=== PATIENT | female | born 1955 | race Caucasian/White ===

== ENCOUNTER 2021-07-21 20:16 | Inpatient (IN) | payer OTHER ==
[~2021-07-21] VITALS: Ht 160 cm; Wt 101.6 kg
[2021-07-21 20:00] VITALS: BP 120/51
[2021-07-21 20:30] VITALS: BP 120/51
[2021-07-21] MEDS ORDERED: REMEDY ESSENTIAL ZINC PASTE 113 GM TOP PRN (20:30)
[2021-07-21] MEDS ORDERED: LOSA25TA27 PO (21:09)
[2021-07-21] MEDS ORDERED: FURO40TA5 PO (21:09)
[2021-07-21] MEDS ORDERED: METF-495 PO (21:09)
[2021-07-21] MEDS ORDERED: RIVA10TA PO (21:09)
[2021-07-21] MEDS ORDERED: METO25TA6 PO (21:09)
[2021-07-21] MEDS ORDERED: ROSU20TA32 PO (21:09)
[2021-07-21] MEDS ORDERED: ASPI-612 PO (21:09)
[2021-07-21] MEDS: OXYCODONE HCL 5 MG TABLET PO PRN (22:43)
--- NOTE | 2021-07-22 03:45 | NUR ---
Received a 66 yr old female from [facility] with an admitting diagnosis of osteomylitis Left knee. Patient S/P left knee arthroplasty POD# 4 Left knee dressing intact with mickey. On pain management. Dr Cha aware of patient's admission. Medicated with Oxycodone 10 mg given as needed. Relief noted. OOB to bedside commode. Voiding well. Dr Chopra texted for patient's admission orders. Awaiting for call back. VS taken and recorded. T 100.9 HR 86 resp 18 BP 120/61 pulse ox 95%RA. Dr Cha also aware of patient's temperature. Will monitor patient. Siderails up for safety.
[2021-07-22 04:00] VITALS: BP 129/55
[2021-07-22 07:42] VITALS: BP 115/51
--- NOTE | 2021-07-22 08:24 | NUR ---
Received PT AAOx4 respiration even and unlabored, sitting on the bed side chair. Patient S/P left knee arthroplasty POD# 4 Left knee dressing intact with mickey on. On pain management. Oxycodone 10 mg given as needed. PT able to get OOB to bedside commode. Voiding well. Up with PT using the FWW. left massage Dr Chopra for patient's admission orders needs to be reconcile. Awaiting for call back. VS taken and recorded. T =98.6 pulse ox 96% at RA. Will monitor patient for comfort and safety Siderails up call light and all need it items within reach.
[2021-07-22] MEDS: OXYCODONE HCL 5 MG TABLET PO PRN ×2 (08:37→21:07)
[2021-07-22 15:33] VITALS: BP 128/52
[2021-07-22] MEDS ORDERED: METF-442 PO (16:32)
--- NOTE | 2021-07-22 20:00 | NUR ---
NSG: Received patient lying in bed. alert and oriented x4. Patient S/P left knee arthroplasty POD# 4 Left knee dressing intact with mickey on. PT able to get OOB to bedside commode. patient uses fww to go to the bath room. Voiding well. Up with PT using the FWW. Will monitor patient for comfort and safety Side rails up call light and all need it items within reach.
[2021-07-22 20:53] VITALS: BP 140/68
[2021-07-22] MEDS: ATORVASTATIN 20 MG TABLET PO SCH (21:59)
[2021-07-22] MEDS: METFORMIN HCL 500 MG TABLET PO SCH (21:59)
[2021-07-23 04:58] VITALS: BP 126/60
--- NOTE | 2021-07-23 05:37 | NUR ---
NSG: Remain calm and cooperative. pain meds given x1 and effective.resting in bed comfortably. call light w/in reach.
[2021-07-23 07:50] VITALS: BP 126/60
[2021-07-23] MEDS: METFORMIN HCL 500 MG TABLET PO SCH ×2 (08:27→17:18)
[2021-07-23] MEDS: LOSARTAN POTASSIUM 25 MG TABLET PO SCH (08:27)
[2021-07-23] MEDS: ASPIRIN 325 MG TABLET PO SCH (08:27)
[2021-07-23] MEDS: FUROSEMIDE 40 MG TABLET PO SCH (08:29)
[2021-07-23] MEDS: RIVAROXABAN 10 MG TABLET PO SCH (08:29)
[2021-07-23] MEDS: METOPROLOL TARTRATE 25 MG TABLET PO SCH ×2 (08:30→17:18)
--- NOTE | 2021-07-23 12:06 | NUR ---
Dr. Cha came to check patient and noticed redness and tenderness at distal part of knee incision, suspecting patient has cellulitis. Dr. Cha asked me to called her Ortho Dr. Vasques in case antibiotics were needed. Dr. Vasques was called at 12:00 at his office [phone], Regina got the message and is going to inform Dr. Vasques.
[2021-07-23] MEDS ORDERED: CLINDAMYCIN PHOSPHATE IV 600 MG in IV DEXTROSE 5% 100 ML IV SCH ×5 (13:45→14:00)
--- NOTE | 2021-07-23 14:40 | NUR ---
Received patient awake in her room. A/O X 3 to person, place, environment, situation. Pt. is calm, cooperative, friendly. Compliant with medications. Knee surgery, dressing changed. Dr. Cha prescribed Clindamycin IV 600 mg in IV Dextrose 5% 100 ml for cellulitis. Requires minimal assistance with ADL. Fall and safety precautions implemented.
[2021-07-23 15:15] VITALS: BP 112/55
[2021-07-23] MEDS: CLINDAMYCIN PHOSPHATE IV 600 MG in IV DEXTROSE 5% 100 ML IV SCH (17:37)
--- NOTE | 2021-07-23 17:44 | NUR ---
Dr. Schultz started Midline IV for this patient around 17:30 to receive antibiotics for cellulitis.
--- NOTE | 2021-07-23 20:00 | NUR ---
RECD PT IN BED, ALERT,ORIENTEDX 4, NO ACUTE DISTRESS NOTED, RESTED FAIRLY WELL, STOOL SAMPLE FOR C DIFF SENT TO LAB, UP TO BR WITH VERY MIN ASSIST.
[2021-07-23 22:10] VITALS: BP 122/61
[2021-07-23] MEDS: ATORVASTATIN 20 MG TABLET PO SCH (22:24)
[2021-07-23] MEDS: OXYCODONE HCL 5 MG TABLET PO PRN (23:33)
--- NOTE | 2021-07-23 23:33 | NUR ---
MEDICATED WITH OXYIR 10 MG FOR LEFT KNEE AND GEN PAIN, REPOSITIONED AND KEPT COMFORTABLE. ROOM TEMP REGULATED ACCORDINGLY.NEEDS ATTENDED TO, MEDICATION TEACHING (OXYIR)PROVIDED. ABLE TO DEMONSTRATE UNDERSTANDING.
[2021-07-24] MEDS: CLINDAMYCIN PHOSPHATE IV 600 MG in IV DEXTROSE 5% 100 ML IV SCH ×3 (03:15→17:20)
[2021-07-24 05:47] VITALS: BP 116/63
[2021-07-24 07:43] VITALS: BP 113/63
--- NOTE | 2021-07-24 08:00 | NUR ---
ENDORSED TO AM NURSE, DID NOT WANT LAB DRAW AT THIS TIME. WILL WAIT FOR A LATER TIME,ENDORSED IN FAIR CONDITION, NO DISTRESS NOTED.
--- NOTE | 2021-07-24 09:21 | NUR ---
RECEIVED PATIENT IN BED AWAKE, ALERT AND ORIENTED WITH NO ACUTE DISTRESS NOTED. WILL CONTINUE TO MONITOR.
[2021-07-24] MEDS: METOPROLOL TARTRATE 25 MG TABLET PO SCH ×2 (09:44→17:19)
[2021-07-24] MEDS: METFORMIN HCL 500 MG TABLET PO SCH ×2 (09:44→17:19)
[2021-07-24] MEDS: LOSARTAN POTASSIUM 25 MG TABLET PO SCH (09:45)
[2021-07-24] MEDS: ASPIRIN 325 MG TABLET PO SCH (09:45)
[2021-07-24] MEDS: FUROSEMIDE 40 MG TABLET PO SCH (09:45)
[2021-07-24] MEDS: RIVAROXABAN 10 MG TABLET PO SCH (09:46)
[2021-07-24] MEDS: OXYCODONE HCL 5 MG TABLET PO PRN ×2 (10:05→17:33)
[2021-07-24 15:15] VITALS: BP 104/55
--- NOTE | 2021-07-24 15:45 | NUR ---
INDIVIDUALIZED PLAN OF CARE
[2021-07-24] MEDS: ATORVASTATIN 20 MG TABLET PO SCH (20:14)
--- NOTE | 2021-07-24 20:51 | NUR ---
STOOL COLLECTED FOR O/P, AND STOOL CX PER MD ORDER. SAMPLE SENT TO THE LAB.
[2021-07-24 21:41] VITALS: BP 101/40
[2021-07-25] MEDS: OXYCODONE HCL 5 MG TABLET PO PRN ×4 (00:23→22:09)
[2021-07-25] MEDS: CLINDAMYCIN PHOSPHATE IV 600 MG in IV DEXTROSE 5% 100 ML IV SCH ×3 (01:19→17:31)
[2021-07-25 04:25] VITALS: BP 105/46
--- NOTE | 2021-07-25 06:04 | NUR ---
Patient remained stable during the shift. no distress identified. Given x1 prn pain medication. PANKAJ midline intact, and flushed prn for patency. Kept on a comfortable position. Dressing changed to the incision site. Kept call light within reach. All due meds given. all needs attended. Safety measures maintained. Will endorse to the next shift for continuity of care.
[2021-07-25 07:08] LABS: MEAN CORPUSCULAR HEMOGLOBIN 29.9 uug (24.7-32.8); MEAN CORPUSCULAR VOLUME 88.2 fL (75.5-95.3); PLATELET COUNT (AUTO) 341 K/uL (179-408)
[2021-07-25 07:32] LABS: CREATININE 0.9 mg/dL (0.6-1.3); MAGNESIUM 2.3 mg/dL (1.8-2.4); PHOSPHOROUS 4.1 mg/dL (2.5-4.9); POTASSIUM 3.7 mmol/L (3.5-5.1)
[2021-07-25] MEDS: ASPIRIN 325 MG TABLET PO SCH (08:11)
[2021-07-25] MEDS: METFORMIN HCL 500 MG TABLET PO SCH ×2 (08:12→17:30)
[2021-07-25] MEDS: FUROSEMIDE 40 MG TABLET PO SCH (08:12)
[2021-07-25] MEDS: RIVAROXABAN 10 MG TABLET PO SCH (08:14)
[2021-07-25] MEDS: METOPROLOL TARTRATE 25 MG TABLET PO SCH ×2 (08:41→16:36)
[2021-07-25] MEDS: LOSARTAN POTASSIUM 25 MG TABLET PO SCH (08:41)
[2021-07-25 11:00] VITALS: BP 122/42
[2021-07-25 16:10] VITALS: BP 113/58
[2021-07-25 20:00] VITALS: BP 120/63
[2021-07-25] MEDS: ATORVASTATIN 20 MG TABLET PO SCH (20:33)
[2021-07-26] MEDS: CLINDAMYCIN PHOSPHATE IV 600 MG in IV DEXTROSE 5% 100 ML IV SCH ×3 (01:38→17:40)
[2021-07-26] MEDS: OXYCODONE HCL 5 MG TABLET PO PRN ×3 (03:56→21:13)
[2021-07-26 04:00] VITALS: BP_SYST 105; BP_SYST 107; BP_DIAS 43; BP_DIAS 44
[2021-07-26 06:41] LABS: HEMATOCRIT 32.6 % (31.2-41.9); MEAN CORPUSCULAR HEMOGLOBIN 29.6 uug (24.7-32.8); MEAN CORPUSCULAR VOLUME 88.4 fL (75.5-95.3); PLATELET COUNT (AUTO) 372 K/uL (179-408)
[2021-07-26 06:54] LABS: CREATININE 0.9 mg/dL (0.6-1.3); MAGNESIUM 2.2 mg/dL (1.8-2.4); PHOSPHOROUS 4.2 mg/dL (2.5-4.9); POTASSIUM 3.9 mmol/L (3.5-5.1)
[2021-07-26] MEDS: METFORMIN HCL 500 MG TABLET PO SCH ×2 (08:28→17:40)
--- NOTE | 2021-07-26 08:30 | NUR ---
Informed dr Mcbride patient is complaining with pain with pins and needles. Order to give the PRN pain medication. He will discuss with patient later. will continue to monitor.
[2021-07-26] MEDS: LOSARTAN POTASSIUM 25 MG TABLET PO SCH (08:32)
[2021-07-26] MEDS: ASPIRIN 325 MG TABLET PO SCH (08:33)
[2021-07-26] MEDS: FUROSEMIDE 40 MG TABLET PO SCH (08:34)
[2021-07-26] MEDS: RIVAROXABAN 10 MG TABLET PO SCH (08:34)
[2021-07-26] MEDS: METOPROLOL TARTRATE 25 MG TABLET PO SCH ×2 (08:35→17:39)
[2021-07-26 12:00] VITALS: BP 115/68
--- NOTE | 2021-07-26 19:02 | NUR ---
The patient remained stable. no distress identified.dressing changed, tolerated well. pain meds prn given as ordered. kept call light within reach. all needs attended. all due meds given. will endorse to the next shift for continuity of care.
--- NOTE | 2021-07-26 19:30 | NUR ---
Received patient awake , alert and orientedx4. Pt in no acute distress. Iv intact . Safety and comfort provided. Will continue to monitor.
[2021-07-26 20:00] VITALS: BP 109/52
[2021-07-26] MEDS: ATORVASTATIN 20 MG TABLET PO SCH (21:03)
--- NOTE | 2021-07-26 22:30 | NUR ---
At 2112h Oxyir 10 mg prn given to pt for leg pain. Pt tolerated it well. After an hour pt stated she felt better but still has pain. Pt stable. Will continue to monitor.
[2021-07-27] MEDS: CLINDAMYCIN PHOSPHATE IV 600 MG in IV DEXTROSE 5% 100 ML IV SCH ×2 (01:03→09:20)
--- NOTE | 2021-07-27 06:05 | NUR ---
Pt slept intermittently. Pt in no acute distress. Iv intact. Dressing intact. Prescribed medication given and pt tolerated it well. Pt vital signs within normal limit. Safety and comfort provided. Will endorse to incoming nurse for continuity of care
[2021-07-27] MEDS: ASPIRIN 325 MG TABLET PO SCH (09:10)
[2021-07-27] MEDS: METFORMIN HCL 500 MG TABLET PO SCH (09:11)
[2021-07-27] MEDS: METOPROLOL TARTRATE 25 MG TABLET PO SCH (09:18)
[2021-07-27] MEDS: RIVAROXABAN 10 MG TABLET PO SCH (09:20)
[2021-07-27] MEDS: LOSARTAN POTASSIUM 25 MG TABLET PO SCH (09:21)
[2021-07-27] MEDS: FUROSEMIDE 40 MG TABLET PO SCH (09:21)
[2021-07-27] MEDS: OXYCODONE HCL 5 MG TABLET PO PRN (09:22)
[2021-07-27 13:46] VITALS: BP 105/48
--- NOTE | 2021-07-27 15:40 | NUR ---
Discharged patient via wheelchair with [employer] transportation to home. Stable condition, no distress identified. VS WNL. Dc instructions signed and noted with understanding. Belonging list signed. Incision site, mickey in intact, no discharge identified. Kept safe and all needs were attended during her stay. No other concerns per patient.
--- NOTE | 2021-08-01 16:21 | NUR ---
INTERDISCIPLINARY TEAM CONFERENCE
--- NOTE | 2021-08-01 16:22 | NUR ---
INTERDISCIPLINARY TEAM CONFERENCE THIS WAS OBSERVED AND DONE ON 07/27/21 13:00
== END 2021-07-27 15:40 | disposition home health service (06) | DRG 560 ==
LOC: MEDSURG3 20:16
PROVIDERS: ADMIT Physical Medicine & Rehabilitation Pain Medicine; ATTEND Physical Medicine & Rehabilitation Pain Medicine
PROC: 05HB33Z Insertion of Infusion Device into Right Basilic Vein, Percutaneous Approach (ICD-10-PCS; principal; 2021-07-23)
DX: Z47.1 Aftercare following joint replacement surgery (principal); E46 Unspecified protein-calorie malnutrition; D68.59 Other primary thrombophilia; T81.41XA Infection following a procedure, superficial incisional surgical site, initial encounter; L03.116 Cellulitis of left lower limb; M17.12 Unilateral primary osteoarthritis, left knee; E11.9 Type 2 diabetes mellitus without complications; E66.01 Morbid (severe) obesity due to excess calories; Z68.39 Body mass index [BMI] 39.0-39.9, adult; Z96.652 Presence of left artificial knee joint; E78.5 Hyperlipidemia, unspecified; I10 Essential (primary) hypertension; Y92.230 Patient room in hospital as the place of occurrence of the external cause; Z91.048 Other nonmedicinal substance allergy status; R26.9 Unspecified abnormalities of gait and mobility; Z88.0 Allergy status to penicillin
CPT/HCPCS: 36415; 76881; 83735; 84100; 85025; 86625; 87046; 87177; 97161; 97535-GO-CO; A4663; G0378; J3490; J7040; J7060